=== PATIENT | female | born 1980 | race Two or more races ===

== ENCOUNTER 2018-12-27 14:46 | Emergency (ER) | payer BC, SELFPAY ==
[~2018-12-27] VITALS: Ht 157.5 cm; Wt 64.5 kg
[2018-12-27 14:55] VITALS: BP 97/70
== END 2018-12-27 16:03 | disposition home or self-care (01) ==
LOC: ED 15:45
DX: B34.9 Viral infection, unspecified (principal); J00 Acute nasopharyngitis [common cold]
CPT/HCPCS: 71045; 99283